=== PATIENT | female | born 1950 | race Caucasian/White ===

== ENCOUNTER → 2019-06-10 | Outpatient (CLI) | payer MEDICARE ==
[~2019-06-10] MED LIST: Bactrim Ds Tab1 EACH PO; CEPH250A PO; DOXY100 PO; IBUP800 PO
== END ==
LOC: LAB 10:00 → LAB SHORT 10:00
DX: D48.5 Neoplasm of uncertain behavior of skin (principal); L08.9 Local infection of the skin and subcutaneous tissue, unspecified
CPT/HCPCS: 87070; 87205

== ENCOUNTER → 2019-06-18 | Outpatient (CLI) | payer MEDICARE | LOC: LAB 17:13 → LAB SHORT 17:13 | DX: L08.9 Local infection of the skin and subcutaneous tissue, unspecified (principal); L72.3 Sebaceous cyst; L82.1 Other seborrheic keratosis; C44.612 Basal cell carcinoma of skin of right upper limb, including shoulder; D23.39 Other benign neoplasm of skin of other parts of face | CPT/HCPCS: 87070; 87205 ==

== ENCOUNTER → 2022-10-09 | Outpatient (CLI) | payer MEDICARE | END | disposition home or self-care (01) | LOC: LAB 11:49 → LAB SHORT 11:49 | DX: Z48.02 Encounter for removal of sutures (principal); L08.9 Local infection of the skin and subcutaneous tissue, unspecified; L72.0 Epidermal cyst | CPT/HCPCS: 87070; 87205 ==